=== PATIENT | female | born 1935 | race Caucasian/White ===

== ENCOUNTER → 2017-12-02 | Outpatient (CLI) | payer MEDICARE ==
[~2017-12-02] MED LIST: ACLI400A2 INH; ASPI-515 PO; FAMO-79 PO; FLUT1AER INH; HYDR-3240 PO; OMNIPAQUE 350 MG/ML, 100ML BOTTLE ONE; SIMV5TAB PO; TIOT4MIS3 INH
== END ==
LOC: CFH 11:37
PROVIDERS: ATTEND Specialist
DX: G31.89 Other specified degenerative diseases of nervous system (principal); J32.2 Chronic ethmoidal sinusitis; J32.1 Chronic frontal sinusitis; I65.23 Occlusion and stenosis of bilateral carotid arteries
CPT/HCPCS: 70470; 70496; 70498; Q9967

== ENCOUNTER → 2018-06-11 | Outpatient (CLI) | payer MEDICARE ==
[~2018-06-11] MED LIST changes: -OMNIPAQUE 350 MG/ML, 100ML BOTTLE ONE
== END | disposition home or self-care (01) ==
LOC: CFH 12:20
PROVIDERS: ATTEND Internal Medicine Critical Care Medicine
DX: I65.23 Occlusion and stenosis of bilateral carotid arteries (principal)
CPT/HCPCS: 93880

== ENCOUNTER 2019-09-29 13:21 | Outpatient (CLI) | payer MEDICARE ==
[~2019-09-29 13:21] MED LIST changes: -ACLI400A2 INH; +ACLI400A3 INH
== END 2019-09-29 23:59 | disposition home or self-care (01) ==
LOC: PETCFH 13:21
PROVIDERS: ATTEND Pathology Hematology
DX: R91.1 Solitary pulmonary nodule (principal); R59.1 Generalized enlarged lymph nodes; Z84.89 Family history of other specified conditions; J44.9 Chronic obstructive pulmonary disease, unspecified; Z85.72 Personal history of non-Hodgkin lymphomas; J33.0 Polyp of nasal cavity; K76.89 Other specified diseases of liver; I10 Essential (primary) hypertension; G43.909 Migraine, unspecified, not intractable, without status migrainosus; Z90.710 Acquired absence of both cervix and uterus; Z90.89 Acquired absence of other organs; Z88.0 Allergy status to penicillin; Z79.899 Other long term (current) drug therapy
CPT/HCPCS: 78815; A9552

== ENCOUNTER 2019-10-13 07:26 | Day surgery (SDC) | payer MEDICARE ==
[~2019-10-13] VITALS: Ht 157.5 cm; Wt 60.0 kg
[2019-10-13 08:37] VITALS: BP 136/68
[2019-10-13] MEDS ORDERED: SODIUM CHLORIDE 0.9% 1,000 ML IV SCH (08:40)
[2019-10-13] MEDS ORDERED: NALOXONE 1 MG/ML, 2ML ONE (10:02)
[2019-10-13] MEDS ORDERED: MIDAZOLAM 1 MG/ML, 5ML ONE (10:02)
[2019-10-13] MEDS ORDERED: FLUMAZENIL 0.1 MG/1 ML, 5ML ONE (10:02)
[2019-10-13] MEDS ORDERED: FENTANYL PF 100 MCG/2ML ONE (10:02)
== END 2019-10-13 12:20 | disposition home or self-care (01) ==
LOC: OUT 07:26
PROVIDERS: ATTEND Pathology Hematology
DX: C82.03 Follicular lymphoma grade I, intra-abdominal lymph nodes (principal); I10 Essential (primary) hypertension; J44.9 Chronic obstructive pulmonary disease, unspecified; G47.30 Sleep apnea, unspecified; G43.909 Migraine, unspecified, not intractable, without status migrainosus; Z79.899 Other long term (current) drug therapy; Z87.891 Personal history of nicotine dependence; Z88.0 Allergy status to penicillin; Z90.710 Acquired absence of both cervix and uterus; Z98.890 Other specified postprocedural states; Z99.81 Dependence on supplemental oxygen
CPT/HCPCS: 38505; 77012; 88305; 88341; 88342; 99156; 99157; J2250; J3010; J7030; J2310

== ENCOUNTER 2019-11-26 11:42 | Emergency (ER) | payer MEDICARE ==
[~2019-11-26] VITALS: Ht 157.5 cm; Wt 60.0 kg
--- NOTE | 2019-11-26 11:57 | NUR ---
CYTOTOXIC PRECAUTIONS IN PLACE FOR RECENT CHEMO ADMINISTRATION.
[2019-11-26] MEDS ORDERED: ALBUTEROL SULFATE 2.5 MG/3 ML NPPB SCH (12:30)
--- NOTE | 2019-11-26 12:33 | NUR ---
MEDS ADMIN PER JAN. LABS DRAWN AND 2X BLOOD CX.
--- NOTE | 2019-11-26 12:46 | NUR ---
UA COLLECTED AND TAKEN TO LAB.
[2019-11-26] MEDS ORDERED: ALBUTEROL SULFATE 2.5 MG/3 ML ONE (12:50)
[2019-11-26 12:51] LABS: MEAN CORPUSCULAR HEMOGLOBIN 30.8 pg (27.0-34.8); MEAN CORPUSCULAR HGB CONC 32.7 g/dL (32.4-35.8); MEAN CORPUSCULAR VOLUME 94.2 fL (80-100); MEAN PLATELET VOLUME 6.5 fL (7.4-10.4); PLATELET COUNT 324 x10^3/uL (130-400); RED BLOOD COUNT 4.38 x10^6/uL (3.82-5.3); RED CELL DISTRIBUTION WIDTH 12.9 % (9.6-15.2)
--- NOTE | 2019-11-26 12:54 | NUR ---
SPOKE WITH [facility]. PT TO BE SEEN AT 0800 TOMORROW MORNING TO CONTINUE INFUSION, IF PT IS DC TODAY. PT AND DAUGHTER NOTIFIED.
[2019-11-26 12:57] LABS: CHLORIDE 104 mmol/L (98-107)
[2019-11-26 13:06] LABS: MICROSCOPIC NOT IND
[2019-11-26 13:06] LABS: ALANINE AMINOTRANSFERASE 20 U/L (12-78); ALBUMIN 3.2 g/dL (3.4-5.0); ALKALINE PHOSPHATASE 49 U/L (45-117); ANION GAP 4 mmol/L (5-15); BILIRUBIN,TOTAL 0.3 mg/dL (0.2-1.0); CREATININE 0.56 mg/dL (0.55-1.02); TOTAL PROTEIN 6.9 g/dL (6.4-8.2); TROPONIN I < 0.015 ng/mL (0.000-0.045)
[2019-11-26 13:16] LABS: BASOPHILS % (AUTO) 0 % (0-1); EOSINOPHILS # (AUTO) 0.05 x10^3/uL (0-0.4); EOSINOPHILS % (AUTO) 1 % (1-7); LYMPHOCYTES # (AUTO) 0.21 x10^3/uL (1-3.4); LYMPHOCYTES % (AUTO) 3 % (22-44); MD SCAN; MONOCYTES # (AUTO) 0.14 x10^3/uL (0.2-0.8); MONOCYTES % (AUTO) 2 % (2-9); NEUTROPHILS % (AUTO) 95 % (42-75)
--- NOTE | 2019-11-26 13:16 | NUR ---
PT REFUSED NEB TX FROM RT. PT STATES SHE DOES NOT NEED ONE AT THIS TIME.
[2019-11-26 13:30] LABS: CULTURE INDICATED? NO
--- NOTE | 2019-11-26 13:37 | NUR ---
ALL RESULTS ARE BACK AT THIS TIME. CHART UP FOR RECHECK.
[2019-11-26 13:43] VITALS: BP 118/62
--- NOTE | 2019-11-26 13:44 | NUR ---
PT RESTING COMFORTABLY ON GURNEY. YURY.
--- NOTE | 2019-11-26 13:54 | NUR ---
MD AT BEDSIDE TO UPDATE PT ON POC.
[2019-11-27] MEDS ORDERED: IPRA4AER INH (08:01)
[2019-11-27] MEDS ORDERED: PRED20TA PO (08:04)
== END 2019-11-26 14:21 | disposition home or self-care (01) ==
LOC: ED 14:15
DX: R10.84 Generalized abdominal pain (principal); J43.9 Emphysema, unspecified; Z87.891 Personal history of nicotine dependence
CPT/HCPCS: 36415; 71045; 80053; 81003; 83605; 83880; 84484; 85025; 87040; 93005; 99284; J7512

== ENCOUNTER → 2020-02-18 | Outpatient (CLI) | payer MEDICARE ==
[~2020-02-18] MED LIST changes: +IPRA4AER INH; +PRED20TA PO
== END | disposition home or self-care (01) ==
LOC: PETCFH 08:18
PROVIDERS: ATTEND Pathology Hematology
DX: C82.03 Follicular lymphoma grade I, intra-abdominal lymph nodes (principal)
CPT/HCPCS: 78815; A9552

== ENCOUNTER → 2020-04-03 | Outpatient (CLI) | payer MEDICARE | END | disposition home or self-care (01) | LOC: CVU 08:44 | PROVIDERS: ATTEND Surgery Vascular Surgery | DX: I65.23 Occlusion and stenosis of bilateral carotid arteries (principal) | CPT/HCPCS: 93880 ==

== ENCOUNTER → 2020-04-05 | Outpatient (CLI) | payer MEDICARE | END | disposition home or self-care (01) | LOC: CFH 10:13 | PROVIDERS: ATTEND Registered Nurse | DX: J44.9 Chronic obstructive pulmonary disease, unspecified (principal); R91.1 Solitary pulmonary nodule | CPT/HCPCS: 71250 ==

== ENCOUNTER 2020-04-20 07:19 | Outpatient (CLI) | payer MEDICARE ==
[~2020-04-20 07:19] MED LIST changes: +ACET325T26 PO; +DOCU100C33 PO
== END 2020-04-20 23:59 | disposition home or self-care (01) ==
LOC: ROC 07:19
PROVIDERS: ATTEND Radiology Radiation Oncology
DX: C82.90 Follicular lymphoma, unspecified, unspecified site (principal)
CPT/HCPCS: 99214; G0463

== ENCOUNTER 2020-05-22 10:11 | Emergency (ER) | payer MEDICARE ==
[~2020-05-22] VITALS: Ht 157.5 cm; Wt 59.0 kg
[2020-05-22] MEDS ORDERED: ALBUTEROL INHALER (10:28)
[2020-05-22] MEDS ORDERED: MORPHINE SULFATE 4 MG/ML, 1ML ONE (10:56)
[2020-05-22] MEDS ORDERED: ONDANSETRON 2MG/ML, 2ML ONE (10:56)
[2020-05-22] MEDS: MORPHINE SULFATE 4 MG/ML, 1ML IVPush PRN ×2 (10:57→13:07)
[2020-05-22] MEDS ORDERED: OXYcodone/APAP 5/325MG TABLET PO ONE (11:00)
[2020-05-22] MEDS ORDERED: ONDANSETRON 2MG/ML, 2ML IVPush ONE (11:00)
--- NOTE | 2020-05-22 11:01 | NUR ---
PT UPRIGHT ON GURNEY AWAKE & C/O INTERMITTENT PAIN, MEDICATED PER EMAR, RESPONDS APPROP TO STAFF, COMFORT MEASURES PROVIDED, DAUGHTER AT BS, CALL LIGHT WITHIN REACH.
[2020-05-22 11:18] LABS: BASOPHILS % (AUTO) 0 % (0-1); EOSINOPHILS # (AUTO) 0.19 x10^3/uL (0-0.4); EOSINOPHILS % (AUTO) 5 % (1-7); LYMPHOCYTES # (AUTO) 0.32 x10^3/uL (1-3.4); LYMPHOCYTES % (AUTO) 8 % (22-44); MD NO; MEAN CORPUSCULAR HEMOGLOBIN 30.8 pg (27.0-34.8); MEAN CORPUSCULAR HGB CONC 33.3 g/dL (32.4-35.8); MEAN PLATELET VOLUME 6.8 fL (7.4-10.4); MONOCYTES % (AUTO) 13 % (2-9); NEUTROPHILS # (AUTO) 2.93 x10^3/uL (1.8-6.8); NEUTROPHILS % (AUTO) 74 % (42-75); PLATELET COUNT 215 x10^3/uL (130-400); RED BLOOD COUNT 3.79 x10^6/uL (3.82-5.3); RED CELL DISTRIBUTION WIDTH 14.3 % (9.6-15.2)
--- NOTE | 2020-05-22 11:21 | NUR ---
PT TO CT
[2020-05-22 11:29] LABS: ALBUMIN 3.7 g/dL (3.4-5.0); ANION GAP 3 mmol/L (5-15); CALCIUM 8.1 mg/dL (8.5-10.1); CHLORIDE 105 mmol/L (98-107); CREATININE 0.56 mg/dL (0.55-1.02)
--- NOTE | 2020-05-22 12:02 | NUR ---
PT REMAINS UPRIGHT ON GURNEY AWAKE & COMFORTABLE AFTER PAIN MED, WATCHING TV, RESPONDS APPROP TO STAFF, COMFORT MEASURES PROVIDED, CALL LIGHT WITHIN REACH.
--- NOTE | 2020-05-22 12:30 | NUR ---
PT AMBULATED TO BR WITH CGA.
[2020-05-22 13:01] VITALS: BP 135/111
--- NOTE | 2020-05-22 13:01 | NUR ---
PT UPRIGHT ON GURNEY AWAKE & C/O RETURNING INTERMITTENT PAIN, RESPONDS APPROP TO STAFF, COMFORT MEASURES PROVIDED, CALL LIGHT WITHIN REACH.
== END 2020-05-22 13:54 | disposition home or self-care (01) ==
LOC: ED 13:19
DX: R51 Headache (principal); R11.2 Nausea with vomiting, unspecified
CPT/HCPCS: 36415; 70450; 80048; 82040; 85025; 96374; 96375; 96376; 99284; J2270; J2405

== ENCOUNTER → 2020-06-16 | Outpatient (CLI) | payer MEDICARE ==
[~2020-06-16] MED LIST changes: +ALBUTEROL INHALER; +OMNIPAQUE 350 MG/ML, 75ML BOTTLE ONE
== END | disposition home or self-care (01) ==
LOC: CFH 10:19
PROVIDERS: ATTEND Pathology Hematology
DX: C82.03 Follicular lymphoma grade I, intra-abdominal lymph nodes (principal)
CPT/HCPCS: 71260; Q9967

== ENCOUNTER → 2020-07-27 | Outpatient (CLI) | payer MEDICARE ==
[~2020-07-27] MED LIST changes: -OMNIPAQUE 350 MG/ML, 75ML BOTTLE ONE
== END | disposition home or self-care (01) ==
LOC: ROC 07:28
PROVIDERS: ATTEND Radiology Radiation Oncology
DX: C34.11 Malignant neoplasm of upper lobe, right bronchus or lung (principal); C82.90 Follicular lymphoma, unspecified, unspecified site; R91.1 Solitary pulmonary nodule
CPT/HCPCS: 99212; G0463

== ENCOUNTER 2020-08-07 06:58 | Emergency (ER) | payer MEDICARE ==
[~2020-08-07] VITALS: Ht 157.5 cm; Wt 59.1 kg
[2020-08-07] MEDS ORDERED: SODIUM CHLORIDE 0.9% 1,000 ML IV ONE (07:06)
[2020-08-07] MEDS ORDERED: HYDROcodone/APAP 5/325 TABLET ONE (07:22)
[2020-08-07] MEDS ORDERED: ONDANSETRON 2MG/ML, 2ML ONE (07:29)
[2020-08-07] MEDS ORDERED: PLEASE ENTER HEIGHT AND WEIGHT MC SCH (07:30)
[2020-08-07] MEDS ORDERED: HYDROcodone/APAP 5/325 TABLET PO ONE (07:30)
[2020-08-07] MEDS ORDERED: SODIUM CHLORIDE FLUSH 10ML SYR IVF ONE (07:30)
--- NOTE | 2020-08-07 07:40 | NUR ---
PT VOMITING, STATES SHE HAS BEEN VOMITING/GAGGING WHEN SHE DRINKS WATER THE LAST FEW DAYS. MD NOTIFIED AND PT MEDICATED PER MAR
--- NOTE | 2020-08-07 07:52 | NUR ---
PER MD OBTAIN RECTAL TEMPERATURE
[2020-08-07 07:56] LABS: MEAN CORPUSCULAR HEMOGLOBIN 30.9 pg (27.0-34.8); MEAN CORPUSCULAR HGB CONC 32.9 g/dL (32.4-35.8); MEAN CORPUSCULAR VOLUME 94.2 fL (80-100); MEAN PLATELET VOLUME 6.5 fL (7.4-10.4); PLATELET COUNT 166 x10^3/uL (130-400); RED BLOOD COUNT 3.93 x10^6/uL (3.82-5.3); RED CELL DISTRIBUTION WIDTH 13.4 % (9.6-15.2)
--- NOTE | 2020-08-07 07:59 | NUR ---
URINE SAMPLE WALKED TO LAB
[2020-08-07] MEDS ORDERED: ONDANSETRON 2MG/ML, 2ML IVPush ONE (08:00)
[2020-08-07 08:03] LABS: ALANINE AMINOTRANSFERASE 20 U/L (12-78); ALBUMIN 3.3 g/dL (3.4-5.0); ANION GAP 6 mmol/L (5-15); CALCIUM 9.2 mg/dL (8.5-10.1); CHLORIDE 97 mmol/L (98-107); CREATININE 0.51 mg/dL (0.55-1.02)
[2020-08-07 08:06] LABS: ALKALINE PHOSPHATASE 42 U/L (45-117); BILIRUBIN,TOTAL 0.3 mg/dL (0.2-1.0); TOTAL PROTEIN 7.1 g/dL (6.4-8.2)
[2020-08-07 08:23] LABS: MD YES
[2020-08-07 08:27] LABS: BAND#(MANUAL) 0.22 x10^3/uL; BANDS%(MANUAL) 8 % (0-7); LYMPH#(MANUAL) 0.28 x10^3/uL (1-3.4); LYMPHS% (MANUAL) 10 % (22-44); MONOS#(MANUAL) 0.28 x10^3/uL (0.3-2.7); MONOS% (MANUAL) 10 % (2-9); SEG#(MANUAL) 2.02 x10^3/uL (1.8-6.8); SEGS% (MANUAL) 72 % (42-75)
[2020-08-07 08:28] LABS: <PLATELET ESTIMATE> ADEQUATE; <PLT MORPHOLOGY> NORMAL PLT MORPH; <RBC MORPHOLOGY> NORMAL
[2020-08-07 08:36] LABS: MICROSCOPIC INDICATED
[2020-08-07 10:25] VITALS: BP 128/53
--- NOTE | 2020-08-07 10:25 | NUR ---
PT TO CT
--- NOTE | 2020-08-07 11:29 | NUR ---
PT WAITING ON FRIEND WHO IS BRINGING HER HOME O2 AND WILL PROVIDE RIDE HOME. PT RESTING IN [facility]
== END 2020-08-07 11:51 | disposition home or self-care (01) ==
LOC: ED 08:02
DX: U07.1 COVID-19 (principal); J18.1 Lobar pneumonia, unspecified organism; R06.02 Shortness of breath; R94.31 Abnormal electrocardiogram [ECG] [EKG]; Z90.710 Acquired absence of both cervix and uterus; Z85.118 Personal history of other malignant neoplasm of bronchus and lung
CPT/HCPCS: 36415; 71045; 71250; 80053; 81001; 83690; 84145; 85025; 87086; 87635; 93005; 96361; 96374; 99285; J2405; J7030

== ENCOUNTER → 2020-09-01 | Outpatient (CLI) | payer MEDICARE ==
[~2020-09-01] MED LIST changes: +OMNIPAQUE 350 MG/ML, 75ML BOTTLE ONE
== END | disposition home or self-care (01) ==
LOC: CFH 09:58
PROVIDERS: ATTEND Pathology Hematology
DX: C82.03 Follicular lymphoma grade I, intra-abdominal lymph nodes (principal); R91.1 Solitary pulmonary nodule; J98.11 Atelectasis
CPT/HCPCS: 71260; Q9967

== ENCOUNTER 2021-03-30 17:28 | Emergency (ER) | payer MEDICARE ==
[~2021-03-30] VITALS: Ht 157.5 cm; Wt 59.0 kg
[~2021-03-30 17:28] MED LIST changes: -ASPI-515 PO; +ASPI-963 PO; +HYDR-2214 PO; -HYDR-3240 PO; -OMNIPAQUE 350 MG/ML, 75ML BOTTLE ONE
--- NOTE | 2021-03-30 17:38 | NUR ---
85 YR OLD FEMALE ARRIVED VIA EMS. PER REPORT, NO BM X2 DAYS (HAD SM ROUND HARD "NUGGETS" ON 03/29/21. ABD DISTENTION. HAS INTERMITTEN ABD PAIN. STARTS AFTER EATING. HAD CHICKEN SOUP AT NOON. PT USES 3L NC AT HOME, INCREASED TO 4L NC BY EMS. PT ALSO STATES "FEELS LIKE I'M HAVING A HARD TIME CATCHING MY BREATH. PT SPEAKING IN COMPLETE SENTENCES. PT STATES "BURPING HELPS". PTS DAUGHTER AT BEDSIDE. PT IS ON [facility], WAS TAKEN OFF OF HOSPICE R/T TRANSPORT TO ER.
--- NOTE | 2021-03-30 17:42 | NUR ---
DR HARDIN AT BEDSIDE TO EVAL PT.
[2021-03-30] MEDS ORDERED: ONDANSETRON 2MG/ML, 2ML IVPush ONE (18:00)
[2021-03-30] MEDS ORDERED: SODIUM CHLORIDE 0.9% 1,000ML IVBOLUS ONE (18:00)
--- NOTE | 2021-03-30 18:09 | NUR ---
IV FLUIDS INFUSING WITHOUT REDNESS/SWELLING. PT DENIED NAUSEA AT THIS TIME. PT AWARE ZOFRAN AVAILABLE IF NEEDED. PT UPDATED ON POC. REPORT TO DENYS ACUÑA.
--- NOTE | 2021-03-30 18:20 | NUR ---
[employer] RIGGER AT BEDSIDE FOR EKG.
[2021-03-30 18:27] LABS: BASOPHILS % (AUTO) 1 % (0-1); EOSINOPHILS % (AUTO) 4 % (1-7); LYMPHOCYTES % (AUTO) 17 % (22-44); MD NO; MEAN CORPUSCULAR HEMOGLOBIN 30.9 pg (27.0-34.8); MEAN CORPUSCULAR HGB CONC 33.6 g/dL (32.4-35.8); MEAN PLATELET VOLUME 7.3 fL (7.4-10.4); MONOCYTES % (AUTO) 12 % (2-9); NEUTROPHILS % (AUTO) 66 % (42-75); PLATELET COUNT 182 x10^3/uL (130-400); RED BLOOD COUNT 3.61 x10^6/uL (3.82-5.3); RED CELL DISTRIBUTION WIDTH 13.2 % (9.6-15.2)
[2021-03-30 18:31] VITALS: BP 146/51
[2021-03-30 18:39] LABS: ALANINE AMINOTRANSFERASE 15 U/L (12-78); ALBUMIN 3.6 g/dL (3.4-5.0); ANION GAP 3 mmol/L (5-15); CALCIUM 8.4 mg/dL (8.5-10.1); CHLORIDE 107 mmol/L (98-107); CREATININE 0.53 mg/dL (0.55-1.02)
[2021-03-30 18:43] LABS: ALKALINE PHOSPHATASE 36 U/L (45-117); BILIRUBIN,TOTAL 0.3 mg/dL (0.2-1.0); TOTAL PROTEIN 6.9 g/dL (6.4-8.2); TROPONIN I < 0.015 ng/mL (0.000-0.045)
--- NOTE | 2021-03-30 18:44 | NUR ---
PT TRANSFERRED TO BEDSIDE COMMODE WITHOUT ASSISTANCE TO PROVIDE URINE SAMPLE. UA COLLECTED AND TAKEN TO LAB. PT POSITIONS FOR COMFORT. IVF RUNNING. PT CONNECTED TO MONITORING. PT USING BASELINE OXYGEN 3L. CALL LIGHT IN REACH.
[2021-03-30] MEDS ORDERED: OMNIPAQUE 350 MG/ML, 100ML BOTTLE ONE (19:00)
[2021-03-30 19:16] LABS: MICROSCOPIC INDICATED
[2021-03-30] MEDS ORDERED: METHYLNALTREXONE 12 MG/0.6 ML SYR SQ ONE ×2 (19:30→20:09)
--- NOTE | 2021-03-30 20:42 | NUR ---
PT STATES SHE URINATED AND PASSED GAS ON BEDSIDE COMMODE. NO STOOL.
--- NOTE | 2021-03-30 21:03 | NUR ---
PT STATES SHE HAD A SMALL BM.
--- NOTE | 2021-03-30 21:03 | NUR ---
PLACED CALL FOR [facility] [employer] [facility]NA[facility] TO CALL BACK THIS RN, PT IS TO BE DC FROM ED.
--- NOTE | 2021-03-30 21:08 | NUR ---
REPORT GIVEN TO KENDELL ACUÑA AT [facility]. KENDELL STATES THEY WILL F/U WITH PT TOMORROW AT HOME AND FILL OUT PAPERWORK AGAIN.
--- NOTE | 2021-03-30 21:35 | NUR ---
ERMD AT BEDSIDE TO UPDATE PT ON POC.
[2021-03-30] MEDS ORDERED: MORPHINE SULFATE 4 MG/ML, 1ML ONE (21:38)
[2021-03-30] MEDS ORDERED: morphine SULFATE 10 MG/ML, 1ML IVPush ONE (22:00)
[2021-03-30] MEDS ORDERED: ONDANSETRON 2MG/ML, 2ML ONE (22:10)
== END 2021-03-30 22:42 | disposition home or self-care (01) ==
LOC: ED 17:58
DX: K59.00 Constipation, unspecified (principal); R10.84 Generalized abdominal pain; Z87.891 Personal history of nicotine dependence; Z85.118 Personal history of other malignant neoplasm of bronchus and lung
CPT/HCPCS: 36415; 71045; 74177; 80053; 81001; 83690; 83880; 84484; 85025; 87086; 93005; 96361; 96372; 96374; 96375; 99285; J2270; J2405; J7030; Q9967